=== PATIENT | female | born 1965 | race Two or more races ===

== ENCOUNTER 2017-07-15 18:46 | Emergency (ER) | payer MEDICAID, OTHER ==
[~2017-07-15] VITALS: Ht 165.1 cm; Wt 93.4 kg
--- NOTE | 2017-07-15 19:15 | NUR ---
PT PLACED IN GOWN AND ON OPERATOR HELPER. VSS/RESP EVEN UNLABORED/NAD NOTED/SKIN WARM AND DRY/DENIES N-V-D/AFEBRILE/AOX4. MD AT BEDSIDE FOR EVAL.
--- NOTE | 2017-07-15 19:35 | NUR ---
DUPLEX AT BEDSIDE.
--- NOTE | 2017-07-15 20:46 | NUR ---
Patient discharged to home in stable condition. Written and verbal after care instructions given. Patient verbalizes understanding of instruction. Patient ambulatory with a steady gait.
[2017-07-15 20:54] VITALS: BP 123/76
== END 2017-07-15 20:54 | disposition home or self-care (01) ==
LOC: ER 18:48
DX: M79.604 Pain in right leg (principal); M79.89 Other specified soft tissue disorders
CPT/HCPCS: 93971-TC; A4606; Z7610

== ENCOUNTER 2018-03-16 21:46 | Emergency (ER) | payer MEDICAID ==
[~2018-03-16] VITALS: Ht 157.5 cm; Wt 96.2 kg
--- NOTE | 2018-03-16 21:55 | NUR ---
PT BIBSELF COMPLAINING OF MID EPIGASTRIC PAIN RADIATING TO RIGHT LOWER BACK X1 DAY. PT DENIES SOB, CHEST PAIN, N/V/D. PT IS AAOX4. RESPIRATIONS EVEN AND UNLABORED. SKIN WARM AND INTACT. PT APPEARS UNCOMFORTABLE. PT ABLE TO AMBULATE WITH STEADY GAIT. PT PLACED IN GOWN AND ON MONITOR, WILL CONTINUE TO MONITOR.
--- NOTE | 2018-03-16 21:58 | NUR ---
URINE COLLECTED AND SENT TO LAB
[2018-03-16] MEDS ORDERED: ONDANSETRON HCL/PF 4 MG/2 ML VIAL ONE (22:29)
[2018-03-16] MEDS ORDERED: MORPHINE SULFATE INJ 4 MG/ML DISP.SYRIN ONE ×2 (22:29→23:43)
[2018-03-16] MEDS ORDERED: IV NS 0.9% 500 ML BAG IV ONE (22:30)
[2018-03-16] MEDS ORDERED: ONDANSETRON HCL/PF 4 MG/2 ML VIAL IVP ONE (22:30)
[2018-03-16] MEDS ORDERED: MORPHINE SULFATE INJ 2 MG/ML DISP.SYRIN IV ONE (22:30)
[2018-03-16 22:49] LABS: BASOPHILS % (AUTO) 0.5 % (0.0-2.0); EOSINOPHILS % (AUTO) 2.1 % (0.0-6.0); HEMATOCRIT 36 % (33-45); HEMOGLOBIN 12.1 g/dL (11.5-14.8); LYMPHOCYTES # (AUTO) 2.2 /CMM (0.8-4.8); LYMPHOCYTES % (AUTO) 26.9 % (20.0-44.0); MEAN CORPUSCULAR HGB CONC 34 g/dl (31.0-36.0); MEAN CORPUSCULAR VOLUME 81 fL (82-100); MONOCYTES # (AUTO) 0.5 /CMM (0.1-1.30); MONOCYTES % (AUTO) 6.4 % (2.0-12.0); NEUTROPHILS # (AUTO) 5.1 /CMM (1.8-8.9); NEUTROPHILS % (AUTO) 64.1 % (43.0-81.0); PLATELET COUNT (AUTO) 365 /CMM (150-450); RED BLOOD CELL COUNT(AUTO) 4.43 MIL/uL (4.0-5.2)
[2018-03-16 22:50] LABS: APPEARANCE,URINE SL CLOUDY (CLEAR); BILIRUBIN,URINE NEGATIVE (NEGATIVE); BLOOD, URINE NEGATIVE Ery/uL (NEGATIVE); COLOR,URINE YELLOW (YELLOW); KETONES,URINE TRACE (NEGATIVE); LEUKOCYTE ESTERASE ,URINE NEGATIVE (NEGATIVE); NITRITE, URINE NEGATIVE (NEGATIVE); PH,URINE 6.5 (5.0-8.0); PROTEIN,URINE NEGATIVE (NEGATIVE); UGLUCOSE NEGATIVE (NEGATIVE); UROBILINOGEN,URINE 0.2 EU/dL (0.2)
[2018-03-16 22:58] LABS: CALCIUM, SERUM 9.5 mg/dL (8.5-10.1); CARBON DIOXIDE 27 mmol/L (21-32); CHLORIDE 101 mmol/L (98-107); CREATININE 0.8 mg/dL (0.6-1.3); GLUCOSE 152 mg/dL (74-106); POTASSIUM 3.3 mmol/L (3.5-5.1); SODIUM SERUM 137 mmol/L (136-145); UREA NITROGEN, BLOOD 16 mg/dL (7-18)
--- NOTE | 2018-03-16 23:01 | NUR ---
US AT BEDSIDE
[2018-03-16 23:05] LABS: ALANINE AMINOTRANSFERASE 33 U/L (12-78); ALBUMIN 3.6 g/dL (3.4-5.0); ALKALINE PHOSPHATASE 94 U/L (46-116); ASPARTATE AMINOTRANSFERASE 22 U/L (15-37); BILIRUBIN,DIRECT 0.1 mg/dL (0.0-0.2); BILIRUBIN,TOTAL 0.3 mg/dL (0.2-1.0); LIPASE 151 U/L (73-393)
[2018-03-16 23:15] LABS: BACTERIA,URINE Few /HPF (None Seen); RBC,URINE 0-2 /HPF (0-2); URINE AMORPHOUS URATE Few /HPF (None Seen)
[2018-03-17] MEDS ORDERED: MORPHINE SULFATE INJ 2 MG/ML DISP.SYRIN IV ONE
--- NOTE | 2018-03-17 00:27 | NUR ---
Patient discharged to home in stable condition. Written and verbal after care instructions given. Patient verbalizes understanding of instruction. IV removed. Catheter intact and site benign. Pressure and 4x4 applied to site. No bleeding noted. Pt ambulatory with a steady gait. Pt instructed not to drive, picked up by daughter
[2018-03-17 00:28] VITALS: BP 139/78
[2018-03-17 02:26] LABS: SQUAMOUS EPITHELIAL CELL,UR Few /HPF (None Seen)
== END 2018-03-17 00:28 | disposition home or self-care (01) ==
LOC: ER 21:51
DX: K80.70 Calculus of gallbladder and bile duct without cholecystitis without obstruction (principal)
CPT/HCPCS: 36415; 71045-TC; 76705-TC; 80048-TC; 80076-TC; 81000-TC; 83690-TC; 84484-TC; 85025-TC; A4606; J2270; J2405; J7040; Z7610

== ENCOUNTER 2019-03-03 17:32 | Emergency (ER) | payer OTHER, MEDICAID ==
[~2019-03-03] VITALS: Ht 167.6 cm; Wt 99.8 kg
--- NOTE | 2019-03-03 17:48 | NUR ---
L LOWER PELVIC PAIN AND LOWER BACK PAIN SINCE YESTERDAY, PT AAOX4, -SOB, NADN OTED, VSS ,PENDING MD REY
--- NOTE | 2019-03-03 18:05 | NUR ---
URINE COLLECTED AND SENT TO LAB
[2019-03-03] MEDS ORDERED: MORPHINE SULFATE INJ 2 MG/ML DISP.SYRIN IV ONE (18:30)
[2019-03-03] MEDS ORDERED: IV NS 0.9% 1,000 ML BAG IV ONE (18:30)
[2019-03-03] MEDS ORDERED: ONDANSETRON HCL/PF 4 MG/2 ML VIAL IVP ONE (18:30)
[2019-03-03] MEDS ORDERED: MORPHINE SULFATE INJ 4 MG/ML DISP.SYRIN ONE (18:33)
[2019-03-03] MEDS ORDERED: ONDANSETRON HCL/PF 4 MG/2 ML VIAL ONE (18:33)
[2019-03-03 18:38] LABS: BASOPHILS # (AUTO) 0.1 /CMM (0.0-0.2); BASOPHILS % (AUTO) 0.6 % (0.0-2.0); EOSINOPHILS % (AUTO) 0.6 % (0.0-6.0); HEMATOCRIT 33 % (33-45); HEMOGLOBIN 10.3 g/dL (11.5-14.8); LYMPHOCYTES # (AUTO) 1.9 /CMM (0.8-4.8); LYMPHOCYTES % (AUTO) 18.6 % (20.0-44.0); MEAN CORPUSCULAR HGB CONC 32 g/dl (31.0-36.0); MEAN CORPUSCULAR VOLUME 72 fL (82-100); MONOCYTES % (AUTO) 10.2 % (2.0-12.0); NEUTROPHILS # (AUTO) 7.2 /CMM (1.8-8.9); PLATELET COUNT (AUTO) 375 /CMM (150-450); RED BLOOD CELL COUNT(AUTO) 4.54 MIL/uL (4.0-5.2); WHITE BLOOD COUNT (AUTO) 10.3 K/uL (4.3-11.0)
[2019-03-03 18:47] LABS: CALCIUM, SERUM 9.3 mg/dL (8.5-10.1); CREATININE 0.7 mg/dL (0.6-1.3); POTASSIUM 3.8 mmol/L (3.5-5.1)
[2019-03-03 19:05] LABS: APPEARANCE,URINE CLEAR (CLEAR); BILIRUBIN,URINE NEGATIVE (NEGATIVE); BLOOD, URINE NEGATIVE Ery/uL (NEGATIVE); COLOR,URINE YELLOW (YELLOW); KETONES,URINE NEGATIVE (NEGATIVE); LEUKOCYTE ESTERASE ,URINE SMALL (NEGATIVE); NITRITE, URINE NEGATIVE (NEGATIVE); PROTEIN,URINE NEGATIVE (NEGATIVE); UGLUCOSE NEGATIVE (NEGATIVE); UROBILINOGEN,URINE 0.2 EU/dL (0.2)
[2019-03-03 19:16] LABS: RBC,URINE 0-2 /HPF (0-2)
[2019-03-03 19:17] LABS: BACTERIA,URINE 1+ /HPF (None Seen); SQUAMOUS EPITHELIAL CELL,UR Few /HPF (None Seen); WBC,URINE 21-50 /HPF (0-3)
[2019-03-03 19:36] LABS: BAND % (MANUAL) 5 % (0.0-5.0); EOSINOPHILS % (MANUAL) 1 % (0-4); LYMPHOCYTES % (MANUAL) 20 % (16-48); MONOCYTES % (MANUAL) 9 % (0-11.0); NEUTROPHILS % (MANUAL) 65 (42-76)
[2019-03-03] MEDS ORDERED: CEFTRIAXONE 1GM BAG (ER ONLY) 50 ML IV ONE (19:47)
[2019-03-03] MEDS ORDERED: CEFTRIAXONE 1 G in IV D5W 50 ML IV ONE (20:00)
--- NOTE | 2019-03-03 20:27 | NUR ---
IV removed. Catheter intact and site benign. Pressure and 4x4 applied to site. No bleeding noted.Patient discharged to home in stable condition. Rx and Written and verbal after care instructions given. Patient verbalizes understanding of instruction.
[2019-03-03 21:01] VITALS: BP 125/74
== END 2019-03-03 20:27 | disposition home or self-care (01) ==
LOC: ER 17:33
DX: N12 Tubulo-interstitial nephritis, not specified as acute or chronic (principal); D50.9 Iron deficiency anemia, unspecified; E66.9 Obesity, unspecified; E78.5 Hyperlipidemia, unspecified; E78.00 Pure hypercholesterolemia, unspecified; Z68.35 Body mass index [BMI] 35.0-35.9, adult
CPT/HCPCS: 36415; 80048; 81001; 84703; 85025; 87086; 96365; 96375; 99283; J0696 ×2; J2270; J2405; J7060; 81000-TC

== ENCOUNTER 2019-03-05 04:41 | Emergency (ER) | payer MEDICAID, OTHER ==
[~2019-03-05] VITALS: Ht 167.6 cm; Wt 99.8 kg
[2019-03-05] MEDS ORDERED: ONDANSETRON HCL/PF 4 MG/2 ML VIAL ONE (04:50)
[2019-03-05] MEDS ORDERED: MORPHINE SULFATE INJ 4 MG/ML DISP.SYRIN ONE (04:50)
[2019-03-05] MEDS ORDERED: MORPHINE SULFATE INJ 2 MG/ML DISP.SYRIN IV ONE (05:00)
[2019-03-05] MEDS ORDERED: IV NS 0.9% 1,000 ML BAG IV ONE (05:00)
[2019-03-05] MEDS ORDERED: ONDANSETRON HCL/PF 4 MG/2 ML VIAL IVP ONE (05:00)
--- NOTE | 2019-03-05 05:00 | NUR ---
C/C GENERALIZED ABD PAIN SINCE 229, +N/V, SEEN HERE TUESDAY. TAKING KEFLEX, TO ER BED 2, VITALS STABLE
[2019-03-05 05:10] LABS: BASOPHILS # (AUTO) 0.1 /CMM (0.0-0.2); HEMATOCRIT 31 % (33-45); LYMPHOCYTES # (AUTO) 1.5 /CMM (0.8-4.8); LYMPHOCYTES % (AUTO) 18.9 % (20.0-44.0); MEAN CORPUSCULAR HGB CONC 32 g/dl (31.0-36.0); MEAN CORPUSCULAR VOLUME 73 fL (82-100); MONOCYTES # (AUTO) 0.6 /CMM (0.1-1.30); MONOCYTES % (AUTO) 7.4 % (2.0-12.0); NEUTROPHILS # (AUTO) 5.7 /CMM (1.8-8.9); NEUTROPHILS % (AUTO) 71.7 % (43.0-81.0); PLATELET COUNT (AUTO) 399 /CMM (150-450); RED BLOOD CELL COUNT(AUTO) 4.28 MIL/uL (4.0-5.2); WHITE BLOOD COUNT (AUTO) 7.9 K/uL (4.3-11.0)
[2019-03-05 05:26] LABS: CALCIUM, SERUM 9.1 mg/dL (8.5-10.1); CREATININE 0.7 mg/dL (0.6-1.3); POTASSIUM 4.2 mmol/L (3.5-5.1)
[2019-03-05 05:30] LABS: ALBUMIN 3.4 g/dL (3.4-5.0); BILIRUBIN,TOTAL 0.2 mg/dL (0.2-1.0)
[2019-03-05] MEDS ORDERED: HYDROMORPHONE 1 MG/1 ML DISP.SYRIN ONE (05:51)
[2019-03-05] MEDS ORDERED: HYDROMORPHONE INJ 0.5 MG/0.5 ML SYRINGE IV ONE (06:00)
--- NOTE | 2019-03-05 06:54 | NUR ---
Patient discharged to home in stable condition. Written and verbal after care instructions given. Patient verbalizes understanding of instruction.
[2019-03-05 06:55] VITALS: BP 143/96
== END 2019-03-05 06:55 | disposition home or self-care (01) ==
LOC: ER 04:44
DX: K57.32 Diverticulitis of large intestine without perforation or abscess without bleeding (principal); E78.00 Pure hypercholesterolemia, unspecified; R11.2 Nausea with vomiting, unspecified
CPT/HCPCS: 36415; 74176; 80048; 80076; 83690; 85025; 96361; 96374; 96375; 99284; J1170; J2270; J2405; J7030

== ENCOUNTER 2023-11-04 14:31 | Emergency (ER) | payer MEDICAID, OTHER ==
[~2023-11-04] VITALS: Ht 165.1 cm; Wt 90.7 kg
[2023-11-04] MEDS ORDERED: ONDANSETRON HCL/PF 4 MG/2 ML VIAL ONE (15:18)
[2023-11-04] MEDS ORDERED: MORPHINE SULFATE INJ 4 MG/ML DISP.SYRIN ONE (15:20)
[2023-11-04] MEDS: IV NS 0.9% 1,000 ML BAG IV ONE (15:32)
[2023-11-04] MEDS: MORPHINE SULFATE INJ 2 MG/ML DISP.SYRIN IV ONE (15:34)
[2023-11-04] MEDS: ONDANSETRON HCL/PF 4 MG/2 ML VIAL IVP ONE (15:35)
[2023-11-04 15:47] LABS: APPEARANCE,URINE Clear (CLEAR); BILIRUBIN,URINE Negative (NEGATIVE); BLOOD, URINE Negative Ery/uL (NEGATIVE); COLOR,URINE YELLOW (YELLOW); KETONES,URINE Negative (NEGATIVE); LEUKOCYTE ESTERASE ,URINE Negative (NEGATIVE); NITRITE, URINE Negative (NEGATIVE); PROTEIN,URINE Trace mg/dl (NEGATIVE); UGLUCOSE Negative (NEGATIVE); UROBILINOGEN,URINE 0.2 EU/dL (0.2)
[2023-11-04 15:50] LABS: PREGNANCY TEST URINE QUAL NEGATIVE (NEGATIVE)
[2023-11-04 15:51] LABS: BASOPHILS % (AUTO) 0.4 % (0.0-2.0); EOSINOPHILS # (AUTO) 0.1 K/uL (0.0-0.7); EOSINOPHILS % (AUTO) 0.6 % (0.0-6.0); HEMATOCRIT 39 % (33-45); HEMOGLOBIN 12.7 g/dL (11.5-14.8); LYMPHOCYTES # (AUTO) 2.1 K/uL (0.8-4.8); LYMPHOCYTES % (AUTO) 18.3 % (20.0-44.0); MEAN CORPUSCULAR HEMOGLOBIN 26 PG (26.0-33.0); MEAN CORPUSCULAR HGB CONC 33 g/dl (31.0-36.0); MEAN CORPUSCULAR VOLUME 79 fL (82-100); MONOCYTES # (AUTO) 0.9 K/uL (0.1-1.30); MONOCYTES % (AUTO) 7.4 % (2.0-12.0); NEUTROPHILS # (AUTO) 8.6 K/uL (1.8-8.9); NEUTROPHILS % (AUTO) 73.3 % (43.0-81.0); PLATELET COUNT (AUTO) 338 K/uL (150-450); RED CELL DISTRIBUTION WIDTH 15.5 % (11.5-15.0); WHITE BLOOD COUNT (AUTO) 11.8 K/uL (4.3-11.0)
[2023-11-04 15:53] LABS: CREATININE 0.5 mg/dL (0.6-1.3); POTASSIUM 3.4 mmol/L (3.5-5.1)
[2023-11-04 15:59] LABS: ALBUMIN 3.6 g/dL (3.4-5.0); BILIRUBIN,DIRECT 0.1 mg/dL (0.0-0.2); BILIRUBIN,TOTAL 0.8 mg/dL (0.2-1.0); TOTAL PROTEIN, SERUM 8.5 g/dL (6.4-8.2)
[2023-11-04 16:17] LABS: ADD URINE CULTURE NO; BACTERIA,URINE Few /HPF (None Seen); RBC,URINE 0-2 /HPF (0-2); SQUAMOUS EPITHELIAL CELL,UR Few /HPF (None Seen); WBC,URINE 0-2 /HPF (0-3)
[2023-11-04] MEDS ORDERED: IV NS 0.9% 250 ML IV ONE (16:55)
[2023-11-04] MEDS ORDERED: IOHEXOL-300 100 ML VIAL IV ONE (16:55)
[2023-11-04] MEDS ORDERED: AMOX/CLAVULANATE 875 MG TABLET PO ONE (18:30)
[2023-11-04] MEDS ORDERED: ONDA4TAB11 PO (18:36)
[2023-11-04] MEDS ORDERED: AMOX-430 PO (18:36)
[2023-11-04] MEDS ORDERED: IBUP-1490 PO (18:36)
[2023-11-04 19:00] VITALS: BP 120/75; TEMP 98.6; O2SAT 96
== END 2023-11-04 19:00 | disposition home or self-care (01) ==
LOC: ER 14:34
DX: K57.92 Diverticulitis of intestine, part unspecified, without perforation or abscess without bleeding (principal); R10.32 Left lower quadrant pain; R11.0 Nausea; E78.00 Pure hypercholesterolemia, unspecified; Z87.19 Personal history of other diseases of the digestive system; Z90.49 Acquired absence of other specified parts of digestive tract
CPT/HCPCS: 99285; 74177; 96374; 96361; 96375; 85025; 80048; 83690; 80076; 84703; 81001; 36415; J2270; J2405; J7030; J7050; Q9967